=== PATIENT | male | born 2005 | race Caucasian/White ===

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

== ENCOUNTER → 2025-02-07 | Outpatient (CLI) | payer BC ==
[~2025-02-07] MED LIST: SODIUM CHLORIDE 0.9% 250 ML in EMPTY BAG 1 BAG IV PRN; SODIUM CHLORIDE 0.9% 500 ML 500 ML in EMPTY BAG 1 BAG IV PRN
[2025-02-07] MEDS: SODIUM CHLORIDE 0.9% 1,000 ML IV NR (13:06)
[2025-02-07] MEDS: ONDANSETRON 8 MG in SODIUM CHLORIDE 0.9% 50 ML IVPB NR (13:07)
[2025-02-07 13:10] VITALS: BP 103/71; PULSE 70; RESP 16; TEMP 98
== END ==
LOC: PROCWHC3 12:37
PROVIDERS: ATTEND Nurse Practitioner Adult Health
DX: K31.84 Gastroparesis
CPT/HCPCS: 96360; 96365; 96367